=== PATIENT | female | born 1940 | race African-American/Black ===

== ENCOUNTER 2024-12-07 12:05 | Inpatient (IN) | payer MEDICARE ==
[~2024-12-07] VITALS: Ht 165.1 cm; Wt 71.8 kg
[2024-12-07 12:17] VITALS: O2SAT 99
[2024-12-07] MEDS ORDERED: COLC0.6C3 MT (14:23)
[2024-12-07] MEDS ORDERED: NAPR-1486 MT (14:23)
[2024-12-07] MEDS: COLCHICINE 0.6MG TABLET PO ONE (15:45)
[2024-12-07 16:17] LABS: PLATELET 273 x1000/uL (130-400); RED BLOOD CELL COUNT 3.71 mill/uL (4.2-5.4); RED CELL DISTRIBUTION WIDTH 14.3 % (11.6-14.6)
[2024-12-07 16:30] LABS: CREATININE 1.4 mg/dL (0.6-1.0); UREA NITROGEN BLOOD 18.0 mg/dL (9-23)
[2024-12-07 20:00] VITALS: BP_SYST 127; BP_SYST 148; BP_DIAS 59; BP_DIAS 60; PULSE 63; PULSE 75; RESP 17; TEMP 36.2; TEMP 36.4736; O2SAT 100
[2024-12-07] MEDS ORDERED: ACETAMINOPHEN 325MG TABLET PO PRN (20:45)
[2024-12-07] MEDS ORDERED: CLONIDINE 0.1MG TABLET PO PRN (20:45)
[2024-12-07] MEDS ORDERED: MAGNESIUM/ALUMINUM HYDROXIDE/SIMETHICONE 30ML UDC PO PRN (20:45)
[2024-12-07] MEDS ORDERED: ENOXAPARIN 40MG/0.4ML SYR SUBCUT SCH (20:45)
[2024-12-07] MEDS ORDERED: ONDANSETRON HCL 4MG/2ML INJ IV PRN (20:45)
[2024-12-07] MEDS: ENOXAPARIN 30MG/0.3ML SYR SUBCUT SCH (21:00)
[2024-12-07] MEDS ORDERED: NALOXONE HCL 0.4MG/ML VIAL IV PRN (21:15)
[2024-12-08] VITALS: BP 129/52; PULSE 66; RESP 20; TEMP 36.7; O2SAT 97
[2024-12-08] MEDS ORDERED: COLC0.6C3 PO (00:37)
[2024-12-08] MEDS: HYDROCODONE/ACETAMINOPHEN 5/325MG TABLET PO PRN (01:22)
[2024-12-08 04:00] VITALS: BP 116/70; PULSE 82; RESP 19; TEMP 36.2; O2SAT 100
[2024-12-08 07:31] LABS: HEMATOCRIT. 31.3 % (36.0-48.0); HEMOGLOBIN. 10.5 g/dL (12.0-16.0); MEAN PLATELET VOLUME 8.5 fl (7.4-10.4); PLATELET 286 x1000/uL (130-400); RED BLOOD CELL COUNT 3.50 mill/uL (4.2-5.4); RED CELL DISTRIBUTION WIDTH 14.0 % (11.6-14.6)
[2024-12-08 07:39] LABS: CREATININE 1.4 mg/dL (0.6-1.0); UREA NITROGEN BLOOD 27.0 mg/dL (9-23)
[2024-12-08 08:00] VITALS: BP 139/89; PULSE 157; RESP 18; TEMP 36.8; O2SAT 96
[2024-12-08] MEDS: PANTOPRAZOLE SODIUM 40 MG/VIAL IV SCH (09:00)
[2024-12-08] MEDS ORDERED: DILTIAZEM HCL 5MG/ML 5ML VIAL IV ONE (10:15)
[2024-12-08] MEDS ORDERED: WATER IV ONE ×2 (10:45→12:30)
[2024-12-08] MEDS ORDERED: DILTIAZEM HCL IV ONE ×2 (10:45→12:30)
[2024-12-08] MEDS ORDERED: DEXT 5% IV ONE ×2 (10:45→12:30)
[2024-12-08] MEDS: DILTIAZEM HCL 5MG/ML 5ML VIAL IV NR (10:45)
[2024-12-08 12:00] VITALS: BP 115/56; PULSE 85; RESP 18; TEMP 36.7; O2SAT 100
[2024-12-08 13:30] LABS: BAND% 7.0 % (1.0-6.0); LYMPHOCYTES % MANUAL 8.0 % (20.0-60.0); MONOCYTES % MANUAL 14.0 % (2.0-8.0); NEUTROPHILS % MANUAL 71.0 % (45.0-75.0); PLATELET ESTIMATE NORMAL
[2024-12-08 16:00] VITALS: BP 118/67; PULSE 85; RESP 18; TEMP 37.1; O2SAT 98
[2024-12-08 20:00] VITALS: BP 103/51; PULSE 85; RESP 18; TEMP 36.3; O2SAT 100
[2024-12-08] MEDS: DILTIAZEM HCL 5MG/ML 5ML VIAL IV SCH (21:03)
[2024-12-08] MEDS: ALLOPURINOL 100 MG TABLET PO SCH (21:14)
[2024-12-09] VITALS (8 sets, daily range): BP systolic 103–127; BP diastolic 51–79; PULSE 74–148; RESP 16–18; TEMP 36.4–36.6; O2SAT 97–99
[2024-12-09] MEDS: POTASSIUM CHLORIDE 20MEQ TABLET SR PO SCH (00:09)
[2024-12-09] MEDS: DIGOXIN 500MCG/2ML AMP IV NR (02:48)
[2024-12-09] MEDS: DILTIAZEM HCL 5MG/ML 5ML VIAL IV NR (02:53)
[2024-12-09] MEDS: COLCHICINE 0.6MG TABLET PO SCH (08:39)
[2024-12-09] MEDS: DILTIAZEM HCL 5MG/ML 5ML VIAL IV SCH (09:38)
[2024-12-09 09:44] LABS: CREATININE 1.3 mg/dL (0.6-1.0); UREA NITROGEN BLOOD 31.0 mg/dL (9-23)
[2024-12-09] MEDS: DILTIAZEM HCL 125 MG in DEXT 5% WATER 100 ML IV SCH (11:05)
[2024-12-09] MEDS: METOPROLOL TARTRATE 5MG/5ML VIAL IV SCH (14:34)
[2024-12-09] MEDS ORDERED: METOPROLOL TARTRATE 5MG/5ML VIAL IV PRN (15:00)
[2024-12-09 19:13] LABS: HEMATOCRIT. 29.6 % (36.0-48.0); HEMOGLOBIN. 9.7 g/dL (12.0-16.0); MEAN PLATELET VOLUME 8.9 fl (7.4-10.4); PLATELET 322 x1000/uL (130-400); RED BLOOD CELL COUNT 3.28 mill/uL (4.2-5.4); RED CELL DISTRIBUTION WIDTH 14.0 % (11.6-14.6)
[2024-12-09 19:27] LABS: CREATININE 1.3 mg/dL (0.6-1.0); UREA NITROGEN BLOOD 35 mg/dL (9-23)
[2024-12-09 19:29] LABS: ASPARTATE AMINOTRANSFERASE 53 IU/L (<34); BILIRUBIN TOTAL 0.6 mg/dL (0.1-1.0); PROTEIN TOTAL 7.7 g/dL (6.0-8.3); TROPONIN I HIGH SENSITIVITY 22 ng/L (3.0-34)
[2024-12-09 19:32] LABS: LYMPHOCYTES % MANUAL 8.0 % (20.0-60.0); MONOCYTES % MANUAL 5.0 % (2.0-8.0); NEUTROPHILS % MANUAL 87.0 % (45.0-75.0)
[2024-12-09 19:33] LABS: PLATELET ESTIMATE NORMAL
[2024-12-09] MEDS: ZOLPIDEM TARTRATE 5MG TABLET PO PRN (20:13)
[2024-12-09] MEDS: METOPROLOL TARTRATE 25MG TABLET PO SCH (20:13)
[2024-12-09 20:34] LABS: INR 1.0
[2024-12-10] VITALS: BP 130/60; PULSE 90; RESP 18; TEMP 36.7; O2SAT 98
[2024-12-10 04:00] VITALS: BP 127/60; PULSE 88; RESP 18; TEMP 37.1; O2SAT 98
[2024-12-10 07:27] LABS: BASOPHILS % 0.4 % (0.0-2.0); EOSINOPHILS % 1.4 % (0.0-5.0); HEMATOCRIT. 30.8 % (36.0-48.0); HEMOGLOBIN. 10.1 g/dL (12.0-16.0); LYMPHOCYTES % 9.6 % (20.0-50.0); MEAN PLATELET VOLUME 8.2 fl (7.4-10.4); MONOCYTES % 12.1 % (2.0-8.0); NEUTROPHILS % 76.5 % (40.0-76.0); PLATELET 330 x1000/uL (130-400); RED BLOOD CELL COUNT 3.42 mill/uL (4.2-5.4); RED CELL DISTRIBUTION WIDTH 14.1 % (11.6-14.6)
[2024-12-10 07:36] LABS: CREATININE 1.3 mg/dL (0.6-1.0)
[2024-12-10 07:37] LABS: ASPARTATE AMINOTRANSFERASE 44 IU/L (<34); LDL CHOLESTEROL 110 mg/dL (5-100); TRIGLYCERIDE 109 mg/dL (0-150); UREA NITROGEN BLOOD 35 mg/dL (9-23)
[2024-12-10 07:39] LABS: BILIRUBIN TOTAL 0.6 mg/dL (0.1-1.0); PROTEIN TOTAL 7.5 g/dL (6.0-8.3)
[2024-12-10 08:00] VITALS: BP 132/79; PULSE 135; RESP 18; TEMP 36.8; O2SAT 100
[2024-12-10] MEDS: METOPROLOL TARTRATE 50MG TABLET PO SCH (09:00)
[2024-12-10 12:00] VITALS: BP 116/69; PULSE 88; RESP 18; TEMP 36.8; O2SAT 100
[2024-12-10 12:04] LABS: BASOPHILS % 0.3 % (0.0-2.0); EOSINOPHILS % 1.3 % (0.0-5.0); HEMATOCRIT. 29.7 % (36.0-48.0); HEMOGLOBIN. 9.9 g/dL (12.0-16.0); LYMPHOCYTES % 8.3 % (20.0-50.0); MEAN PLATELET VOLUME 8.4 fl (7.4-10.4); MONOCYTES % 8.3 % (2.0-8.0); NEUTROPHILS % 81.8 % (40.0-76.0); PLATELET 323 x1000/uL (130-400); RED BLOOD CELL COUNT 3.31 mill/uL (4.2-5.4); RED CELL DISTRIBUTION WIDTH 14.3 % (11.6-14.6)
[2024-12-10 12:25] LABS: CREATININE 1.4 mg/dL (0.6-1.0); UREA NITROGEN BLOOD 34.0 mg/dL (9-23)
[2024-12-10] MEDS: PREDNISONE 20MG TABLET PO SCH (15:00)
[2024-12-10 16:00] VITALS: BP 116/63; PULSE 81; RESP 18; TEMP 36.5; O2SAT 98
[2024-12-10 20:00] VITALS: BP 119/73; PULSE 134; RESP 18; TEMP 36.2; O2SAT 98
[2024-12-10] MEDS: ATORVASTATIN CALCIUM 20MG TABLET PO SCH (20:40)
[2024-12-11] VITALS: BP 121/72; PULSE 124; RESP 19; TEMP 36.2; O2SAT 98
[2024-12-11 03:36] VITALS: BP 122/83; PULSE 121; RESP 17; TEMP 36.1; O2SAT 97
[2024-12-11 06:33] LABS: CREATININE 1.3 mg/dL (0.6-1.0); UREA NITROGEN BLOOD 36 mg/dL (9-23)
[2024-12-11 06:36] LABS: HEMATOCRIT. 32.7 % (36.0-48.0); HEMOGLOBIN. 10.8 g/dL (12.0-16.0); MEAN PLATELET VOLUME 8.1 fl (7.4-10.4); PLATELET 389 x1000/uL (130-400); RED BLOOD CELL COUNT 3.68 mill/uL (4.2-5.4); RED CELL DISTRIBUTION WIDTH 14.0 % (11.6-14.6)
[2024-12-11 08:00] VITALS: BP 135/86; PULSE 116; RESP 18; TEMP 36.4; O2SAT 96
[2024-12-11] MEDS ORDERED: DEXTROSE 50% WATER 50ML SYRINGE IV PRN (08:15)
[2024-12-11] MEDS: METOPROLOL TARTRATE 25MG TABLET PO SCH (09:17)
[2024-12-11] MEDS: FAMOTIDINE 20MG/2ML VIAL IV SCH (09:18)
[2024-12-11] MEDS: SODIUM CHLORIDE 0.45% 1,000 ML IV SCH (09:20)
[2024-12-11 12:00] VITALS: BP 114/81; PULSE 59; RESP 18; TEMP 35.3; O2SAT 98
[2024-12-11] MEDS: BLOOD SUGAR DIAGNOSTIC STRIP TEST SCH (12:10)
[2024-12-11] MEDS: INSULIN LISPRO 100 UNITS/ML SUBCUT SCH (13:38)
[2024-12-11 16:00] VITALS: BP 136/54; PULSE 58; RESP 18; TEMP 35.7; O2SAT 98
[2024-12-11] MEDS: METOPROLOL TARTRATE 50MG TABLET PO SCH (17:18)
[2024-12-11 18:23] LABS: EOSINOPHILS % MANUAL 1.0 % (0.0-5.0); LYMPHOCYTES % MANUAL 9.0 % (20.0-60.0); MONOCYTES % MANUAL 4.0 % (2.0-8.0); NEUTROPHILS % MANUAL 86.0 % (45.0-75.0)
[2024-12-11 18:24] LABS: PLATELET ESTIMATE NORMAL
[2024-12-11 20:00] VITALS: BP 125/59; PULSE 68; RESP 18; TEMP 36.3; O2SAT 100
[2024-12-12] VITALS: BP 145/60; PULSE 60; RESP 18; TEMP 36.2; O2SAT 96
[2024-12-12 04:00] VITALS: BP 158/78; PULSE 61; RESP 20; TEMP 36.2; O2SAT 98
[2024-12-12 07:18] LABS: CREATININE 1.4 mg/dL (0.6-1.0); UREA NITROGEN BLOOD 48 mg/dL (9-23)
[2024-12-12 08:00] VITALS: BP 148/65; PULSE 58; RESP 18; TEMP 36.6; O2SAT 98
[2024-12-12 12:00] VITALS: BP 149/75; PULSE 57; RESP 18; TEMP 36.6; O2SAT 98
[2024-12-12] MEDS: AMLODIPINE 2.5MG TABLET PO SCH (12:27)
[2024-12-12] MEDS ORDERED: METO-539 MT (12:37)
[2024-12-12] MEDS ORDERED: ALLO100T MT (12:37)
[2024-12-12] MEDS ORDERED: P20 MT (12:37)
[2024-12-12 16:00] VITALS: BP 149/57; PULSE 62; RESP 18; TEMP 36.5; O2SAT 99
[2024-12-12 20:00] VITALS: BP 125/61; PULSE 55; RESP 18; TEMP 36.8; O2SAT 97
[2024-12-13] VITALS: BP 157/76; PULSE 66; RESP 18; TEMP 36.8; O2SAT 94
[2024-12-13 04:00] VITALS: BP 156/68; PULSE 58; RESP 20; TEMP 36.7; O2SAT 96
[2024-12-13 06:37] LABS: BASOPHILS % 0.3 % (0.0-2.0); EOSINOPHILS % 0.1 % (0.0-5.0); HEMATOCRIT. 32.9 % (36.0-48.0); HEMOGLOBIN. 10.7 g/dL (12.0-16.0); LYMPHOCYTES % 8.2 % (20.0-50.0); MEAN PLATELET VOLUME 8.2 fl (7.4-10.4); MONOCYTES % 5.9 % (2.0-8.0); NEUTROPHILS % 85.5 % (40.0-76.0); PLATELET 422 x1000/uL (130-400); RED BLOOD CELL COUNT 3.67 mill/uL (4.2-5.4); RED CELL DISTRIBUTION WIDTH 14.4 % (11.6-14.6)
[2024-12-13 06:47] LABS: CREATININE 1.3 mg/dL (0.6-1.0); UREA NITROGEN BLOOD 45.0 mg/dL (9-23)
[2024-12-13 08:08] VITALS: BP 148/76; RESP 18; TEMP 36.2; O2SAT 100
[2024-12-13 12:00] VITALS: BP 148/88; PULSE 68; RESP 18; TEMP 35.7; O2SAT 98
[2024-12-13 14:47] VITALS: BP 148/88; PULSE 68; TEMP 97.6
== END 2024-12-13 17:57 | disposition home health service (06) | DRG 554 ==
LOC: ER 12:05 → EDBEDREQ 16:30 → EDBEDREQTM 16:30 → 6EST 20:01 → 8WST 12-08 10:37
PROVIDERS: ADMIT Internal Medicine; ATTEND Internal Medicine
DX: M10.9 Gout, unspecified (principal); I47.10 Supraventricular tachycardia, unspecified; I42.9 Cardiomyopathy, unspecified; I10 Essential (primary) hypertension; M79.661 Pain in right lower leg; D64.9 Anemia, unspecified; R73.9 Hyperglycemia, unspecified; E78.00 Pure hypercholesterolemia, unspecified; Z96.652 Presence of left artificial knee joint; Z55.6 Problems related to health literacy; Z79.899 Other long term (current) drug therapy; Z88.5 Allergy status to narcotic agent
CPT/HCPCS: 36415; 73562; 80048; 80053; 80061; 82962; 83036; 83735; 84145; 84443; 84484; 84550; 85025; 85027; 85379; 93005; 93306; 93970; 97116; 97162; 97166; 97530; 99285; A4606; J1160; J1308; J1650; J1815; J2470; J3490; J7060; J7512